=== PATIENT | female | born 1940 | race American Indian/Alaskan Native ===

== ENCOUNTER 2016-12-23 10:33 | Day surgery (SDC) | payer MEDICARE, BC ==
[~2016-12-23 10:33] MED LIST: Acetaminophen TAB* 325 MG PO PRN; Buffered Lidocaine 0.9% SYRIN* 5 ML/SYR SYRINGE INTRADERM ONE
[2016-12-23] MEDS ORDERED: Midazolam* 1 MG/ML 2 ML VIAL (2 MG) ONE (11:23)
[2016-12-23 12:59] VITALS: BP 105/88
[2016-12-23] MEDS ORDERED: Cyclopentolate 1% OPTH.SOL* 2 ML BTL ONE (14:01)
[2016-12-23] MEDS ORDERED: Neomycin/Polymy/Dex OPTH.SUSP* MAXITROL 0.1% 5 ML ONE (14:01)
[2016-12-23] MEDS ORDERED: Proparacaine 0.5% OPHTH.SOL* 15 ML BTL ONE (14:01)
[2016-12-23] MEDS ORDERED: Lidocaine 1% MPF* 2 ML VIAL ONE (14:01)
[2016-12-23] MEDS ORDERED: Buffered Lidocaine 0.9% SYRIN* 5 ML/SYR SYRINGE ONE (14:01)
[2016-12-23] MEDS ORDERED: acetaZOLAMIDE TAB* 250 MG ONE (14:01)
[2016-12-23] MEDS ORDERED: Povidone Iodine 5% OPTH* 30 ML BTL ONE (14:01)
[2016-12-23] MEDS ORDERED: Phenylephrine 2.5% OPTH.SOL* 2 ML BTL ONE (14:01)
[2016-12-23] MEDS ORDERED: Ketorolac 0.5% OPHTH (NF) 0.5 % 5 ML BTL ONE (14:01)
--- NOTE | 2016-12-23 23:51 | OP ---
DATE OF OPERATION: 12/23/16 [facility] DATE OF : 36 SURGEON: Dionicio Villeda MD PREOPERATIVE DIAGNOSIS: Cataract, left eye. POSTOPERATIVE DIAGNOSIS: Cataract, left eye. OPERATIVE PROCEDURE: Phacoemulsification, left eye with IOL. DESCRIPTION OF PROCEDURE: The patient was brought to the operating room after being given 1/2% Alcaine with epinephrine drops in the preoperative area. The eye was prepped and draped in the usual sterile fashion. Sterile drape and eyelid speculum were placed. Again, topical 1/2% Alcaine with epinephrine was given. A paracentesis incision was made at the 3 o'clock position with the No.75 blade. Clear cornea incision 2.2 x 2.2-mm was created at the 6 o'clock position starting at the anterior limbus using the 2.2-mm keratome. The anterior chamber was irrigated with 0.4 mL of 1% non-preservative intracameral lidocaine and filled with DisCoVisc. A capsulorrhexis was completed using the cystotome and the Utrata forceps. Hydrodissection was performed with balanced salt solution. The lens nucleus was removed with the Phacoemulsification handpiece without incident. Cortex was removed with the irrigation-aspiration handpiece. The capsular bag was re-inflated using DisCoVisc and an [id number] 25.5 implant was inserted with the shooter. The irrigation-aspiration handpiece was used to remove all residual DisCoVisc. The eye was refilled with balanced salt solution and the wound checked and found to be watertight. Topical Maxitrol drops were given. [id number]/[facility] #: [id number] MTDD
== END 2016-12-23 12:30 | disposition home or self-care (01) ==
LOC: OREAST 10:33
PROVIDERS: ATTEND Specialist
DX: H25.12 Age-related nuclear cataract, left eye (principal); I10 Essential (primary) hypertension; I48.91 Unspecified atrial fibrillation; E03.9 Hypothyroidism, unspecified
CPT/HCPCS: A9270-GY; J2250; V2632

== ENCOUNTER 2017-11-18 06:27 | Day surgery (SDC) | payer MEDICARE, BC ==
--- NOTE | 2017-11-14 12:50 | HP ---
HISTORY AND PHYSICAL: DATE OF SERVICE: 11/18/17 ATTENDING PROVIDER: Luis Pedroza MD * (DICTATED BY JAMIL GIORDANO) HISTORY OF PRESENT ILLNESS: Ms. Urbano is a 77-year-old female who presents today with a mass on her right index finger that has been enlarging and is quite red. She also had some pain. The patient has been treated by Dr. Hebert 1 month ago with allopurinol for a diagnosis of gout. Last Friday, she was seen by a home care nurse who is also present today and states that the area was slightly red, but not swollen. The patient states that 2 days ago, it swelled up significantly and became painful. She is seen by Dr. Wolf, her brand mgr for atrial fibrillation, which she is on Pradaxa for. She denies any history of blood clots. She denies any numbness or tingling. No other joint pain. She would like to get this removed if possible. PAST MEDICAL HISTORY: 1. Hypertension. 2. AFib. 3. High cholesterol. 4. Gout. 5. Arthritis 6. Thyroid problems. 7. Anxiety. PAST SURGICAL HISTORY: None. MEDICATIONS: 1. Hydrocodone/acetaminophen 10/325. 2. Pradaxa 150 mg 1 tab b.i.d. 3. Atorvastatin 10 mg. 4. Allopurinol 100 mg. 5. Metoprolol 100 mg. 6. Buspirone 15 mg. 7. Gabapentin 100 mg. 8. Levothyroxine 75 mcg. 9. Colace 100 mg. 10. Furosemide 20 mg. 11. Vitamin D3 1 tab. ALLERGIES: 1. MORPHINE. 2. HYDROCHLOROTHIAZIDE. FAMILY HISTORY: Diabetes in her son, heart disease in her mother. SOCIAL HISTORY: The patient lives with her spouse, has 3 steps to get into her home. 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 She does not use tobacco or recreational drugs. She does drink alcohol, 3 glasses of wine per week. REVIEW OF SYSTEMS: General: The patient denies fevers, chills or night sweats. No known anesthesia problems. HEENT: The patient denies any headaches , lightheadedness or syncopal episode. Cardiothoracic: The patient denies any chest pain or heart palpitations. Pulmonary: The patient denies any shortness of breath with exertion, chronic cough. GI: The patient admits to constipation. Denies any nausea or vomiting or diarrhea. : The patient denies any nocturia, urinary frequency or urgency. MSK: The patient admits to swelling on her right index finger and also admits to chronic low back pain and knee pain bilaterally. Neuro: The patient denies any numbness or paresthesias. Integument: The patient denies any abrasions, lesions, rashes, lumps, or open sores. PHYSICAL EXAMINATION GENERAL: The patient is alert and oriented x3 with appropriate mood and affect , appropriate dress and hygiene, in no acute distress. HEENT: Normocephalic atraumatic. Hearing and vision are grossly intact. PULMONARY: Lungs are clear to auscultation bilaterally with no wheezes, rales or rhonchi. CARDIO: Irregular rate and irregular rhythm consistent with AFib. Normal S1 and S2. No murmurs, rubs or gallops. MSK: Inspection of the right upper extremity reveals a large mass of the right index finger on the dorsal aspect. She is able to move her finger through a full range of motion. The mass is quite erythematous with 2 areas of white ____ __. The mass is slightly hard and tender to palpation. Cap refill is less than 2 seconds. The patient has a 2+ radial pulse and she has sensation intact to light touch. IMAGING: X-ray was obtained and reviewed. There is a soft tissue mass seen on x- ray through a shadow present. The DIP joint of the right index finger shows significant arthritis spurring and joint space narrowing. IMPRESSION: Right index finger acute gouty tophus. PLAN: Plan to the OR for removal of a gouty tophus from the right index finger by Dr. Luis Pedroza on 11/18/17. The patient will follow up in 10 to 14 days postoperatively for suture removal and a followup. Dr. Pedroza reviewed the risks and benefits of surgery today. We also contacted Dr. Wolf's office and we spoke with Dr. Wolf about discontinuing the Pradaxa. He advised that Pradaxa will be discontinued 2 days prior to surgery with no bridging needed and then we can restart the Pradaxa immediately after. We conveyed the message to the patient's caregiver and she understood. JAMIL GIORDANO [id number]/[facility] #: [id number] [facility]ITAL[facility]
[~2017-11-18 06:27] MED LIST changes: -Acetaminophen TAB* 325 MG PO PRN
[2017-11-18] MEDS ORDERED: ceFAZolin 2 GM PREMIX (*) 2 GM/50 ML BAG IVPB ONE (06:54)
[2017-11-18] MEDS ORDERED: Bupivacaine 0.25% SDV PF* 10 ML VIAL INJ ONE (07:09)
[2017-11-18] MEDS ORDERED: Metoprolol Tartrate TAB* 25 MG ONE (07:21)
[2017-11-18] MEDS ORDERED: fentaNYL* 50 MCG/ML 2 ML VIAL (100 MCG VIAL) ONE (07:36)
[2017-11-18] MEDS ORDERED: Midazolam* 1 MG/ML 2 ML VIAL (2 MG) ONE (07:36)
[2017-11-18] MEDS ORDERED: Bacitracin OINTMENT* 0.5% 0.5 oz TUBE ONE (08:17)
[2017-11-18] MEDS ORDERED: Naloxone* 0.4 MG/ML 1 ML VIAL IV PRN (08:39)
[2017-11-18 09:32] VITALS: BP 140/73
--- NOTE | 2017-11-18 13:47 | OP ---
CC: Dr. Hebert * DATE OF OPERATION: 11/18/17 - [facility] DATE OF : 36 SURGICAL CARE: Right index finger. SURGEON: Luis Pedroza MD BREAKFAST SUPERVISOR: Daisy Arreguin. ANESTHESIOLOGIST: Peter ISSA DO ANESTHESIA: Local anesthetic, Dr. Pedroza, was a digital block right index finger with 0.25% Marcaine without epinephrine. 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 OPERATIVE PROCEDURE: Removal of gouty tophi, right index finger DIP joint, dorsal radial and ulnar sides and debridement of the DIP joint. INDICATIONS: Painful large mass. The patient's Pradaxa was stopped 2 evenings ago and the Pradaxa will restart later today. The indication is same as described above. COMPLICATIONS: There were no complications. DRAINS: There were no drains. CONDITION: Stable to the recovery area. DESCRIPTION OF PROCEDURE: The patient was brought to the operating room in the hospital stretcher where she was made comfortable. The right upper extremity was prepped with ChloraPrep and then the right forearm, wrist, and hand were draped in the usual manner for hand surgery. We did our universal protocol time-out confirming Leslee Urbano and the plan for right index finger removal of mass and care of DIP joint. We all agreed and we proceeded. The finger was exsanguinated with a circular tourniquet which was left on the base of the finger and the skin incision was longitudinal along the dorsal radial aspect of the DIP joint starting at the base of the nail and going into the middle segment of the finger. The patient's skin was intact 5 days ago and then since then the dorsal tophus has eroded through the skin some and this was on the ulnar side of this incision. This area was about 8 mm in diameter. The skin and subcu was divided and then the flaps were elevated on the dorsal side and on the radial side. The extensor tendon was identified and the tophus was peeled off the dorsal radial aspect of the extensor tendon where it also went into the tendon some. This one was 2-3 cm x 1.5 cm x 1.5 cm in thickness and all of it was sent for specimen. Once this was off, then the radial aspect of the DIP joint was exposed down to the bone and the rongeur was utilized to remove the extra bone on the radial aspect of the middle phalanx and the base of the distal phalanx. The skin incision was teed across the dorsum of the DIP joint and on the ulnar side, a smaller tophus was removed, it was just 1 cm x 0.5 cm x 0.5 cm and the ulnar side of the DIP joint was also debrided with rongeur and then I took care to try to remove all the rest of the toothpaste-like tissue from the joint, the extensor tendon region, and the dorsal skin. The extensor tendon was kept in continuity. After irrigation, the dorsal skin flap was debrided a little bit. The skin was closed carefully with interrupted 4-0 Prolene sutures and a dressing was Xeroform with triple antibiotic ointment and 1-inch Mariusz in a gentle compressive fashion on the index finger. The tourniquet was removed and care was taken to see that the skin and subcu was not adherent to the deep structures where the tourniquet had been and then the dressing was anchored over the dorsal hand to the wrist utilizing the Mariusz and 1-inch Coban. The patient was returned to the recovery area in stable and satisfactory condition having tolerated the procedure very well. Her Pradaxa, we will restart with her evening dose tonight and she knows to keep the dressing intact and dry and we will be checking her in the office in 8 days and as necessary. Ancef was utilized as a perioperative protection prophylaxis. [id number]/[facility] #: [id number] MILEY
== END 2017-11-18 09:34 | disposition home or self-care (01) ==
LOC: OR 06:27
PROVIDERS: ATTEND Orthopaedic Surgery
DX: M1A.9XX1 Chronic gout, unspecified, with tophus (tophi) (principal); I10 Essential (primary) hypertension; I48.91 Unspecified atrial fibrillation; E78.00 Pure hypercholesterolemia, unspecified; M19.90 Unspecified osteoarthritis, unspecified site; F41.9 Anxiety disorder, unspecified
CPT/HCPCS: 88304; A9270-GY; J0690; J2250; J3010; J3490

== ENCOUNTER 2018-04-07 12:49 | Inpatient (IN) | payer MEDICARE, BC, OTHER ==
--- NOTE | 2018-04-07 13:21 | ED ---
Altered Mental Status - HPI Summary HPI Summary: This pt is a 77 y/o female presenting to [facility] via EMS for altered mental status. Per EMS pt's home health nurse called EMS because pt was altered compared to baseline. EMS states the pt reported to the home nurse that she was seeing the devil. Upon EMS arrival, pt ambulated to the ambulance. Per EMS upon arriving to the ED, pt began c/o right sided back and hip pain. Pt points to right groin pain that radiates to her right side of back, including her right hip. Pt denies any fall. Denies nausea, vomiting, diarrhea, dysuria. She states she has been eating and drinking well. She is unable to state where she lives and unable to tell the day and month. Pt lives with her at home, per EMS. Per Grazyna, her home health nurse, pt had hx of anxiety and was started on Ativan a couple of weeks ago. Pt has hx of chronic pain and has medications for this. This morning pt had back pain, which is unusual for her. Confusion is also unusual for her, per Grazyna. - History Of Current Complaint Chief Complaint: EDBackInjuryPain Stated Complaint: BACK PAIN Hx Obtained From: Patient, Family/Customer Sales Service Manager - home health nurse, Grazyna, EMS Onset/Duration: Still Present Timing: Constant, Lasting Hours Severity Currently: Moderate Character: Confusion Aggravating Factor(s): Unknown Alleviating Factor(s): Unknown Associated Signs And Symptoms: Negative: Nausea, Vomiting, Fever, Recent Trauma - Allergies/Home Medications Allergies/Adverse Reactions: Allergies Allergy/AdvReac Type Severity Reaction Status Date / Time hydrochlorothiazide Allergy hyponatremi Verified 03/05/18 13:16 a morphine Allergy Hallucinati Verified 03/05/18 13:16 ons Home Medications: Home Medications Allopurinol TAB* [Zyloprim 100 MG TAB*] 100 mg PO QAM 04/07/18 [History Confirmed 04/07/18] Chlorhexidine MOUTHWASH 0.12%* [Peridex Mouth Wash 0.12%*] 15 ml SWISH SPIT DAILY 04/07/18 [History Confirmed 04/07/18] Docusate CAP* [Colace Cap*] 100 mg PO BID 04/07/18 [History Confirmed 04/07/18] Gabapentin CAP(*) [Neurontin 100 mg CAP(*)] 100 mg PO QAM 04/07/18 [History Confirmed 04/07/18] Gabapentin CAP(*) [Neurontin 100 mg CAP(*)] 200 mg PO BEDTIME 04/07/18 [History Confirmed 04/07/18] Hydrocodone/Acetamin 10325(NF [Thayer 10325 (NF)] 0.5 tab PO Q6H MDD 4 tabs 03/15 [History Confirmed 04/07/18] LORazepam TAB(*) [Ativan 0.5 MG TAB (*)] 0.25 mg PO BID 04/07/18 [History Confirmed 04/07/18] Magnesium Hydroxide LIQ* [Milk of Magnesia LIQ*] 30 ml PO BEDTIME PRN 04/07/18 [ History Confirmed 04/07/18] Metoprolol Tartrate TAB* [Lopressor TAB*] 50 mg PO BID 04/07/18 [History Confirmed 04/07/18] busPIRone TAB* [Buspar TAB *] 15 mg PO BID 04/07/18 [History Confirmed 04/07/18] PMH/Surg Hx/FS Hx/Imm Hx Endocrine/Hematology History: Reports: Hx Thyroid Disease Denies: Hx Anticoagulant Therapy, Hx Blood Disorders, Hx Blood Transfusions, Hx Bone Marrow Disease, Hx Diabetes, Hx Systemic Lupus Erythematosus, Hx Sickle Cell Disease, Hx Anemia, Hx Unexplained Bleeding, Other Endocrine/Hematological Disorders Cardiovascular History: Reports: Hx Hypertension - controlled with meds, Other Cardiovascular Problems/Disorders - ATRIAL FIB Denies: Hx Aneurysm, Hx Angina, Hx Angioplasty, Hx Auto Implanted Cardiovert Defib, Hx Cardiac Arrest, Hx Cardiomegaly, Hx Congenital Heart Disease, Hx Congestive Heart Failure, Hx Coronary Artery Disease, Hx Deep Vein Thrombosis, Hx Hypercholesterolemia, Hx Hypotension, Hx Pacemaker/ICD, Hx Peripheral Vascular Disease, Hx Rheumatic Fever, Hx Syncope, Hx Valvular Heart Disease Respiratory History: Denies: Hx Asthma, Hx Bronchopulmonary Dysplasia, Hx Chronic Bronchitis, Hx Chronic Obstructive Pulmonary Disease (COPD), Hx Cystic Fibrosis, Hx Lung Cancer , Hx Pleural Effusion, Hx Pneumonia, Hx Pulmonary Edema, Hx Pulmonary Embolism, Hx Seasonal Allergies, Hx Sleep Apnea, Other Respiratory Problems/Disorders GI History: Reports: Hx Gastroesophageal Reflux Disease - OCCASIONALLY, Other GI Disorders - Chronic constipation Denies: Hx Cirrhosis, Hx Crohn's Disease, Hx Diverticulosis, Hx Gall Bladder Disease, Hx Gastrointestinal Bleed, Hx Hiatal Hernia, Hx Irritable Bowel, Hx Jaundice, Hx Obstructive Bowel, Hx Ileostomy, Hx Pyloric Stenosis, Hx Ulcer History: Denies: Hx Acute Renal Failure, Hx Benign Prostatic Hyperplasia, Hx Chronic Renal Failure, Hx Dialysis, Hx Kidney Infection, Hx Kidney Stones, Other Problems/Disorders Musculoskeletal History: Reports: Hx Arthritis - HANDS, KNEES & FEET, OSTEOARTHRITIS Denies: Hx Bursitis, Hx Congenital Bone Abnormalities, Hx Fibromyalgia, Hx Gout, Hx Orthopedic Injury, Hx Osteoporosis, Hx Scoliosis, Hx Tendonitis, Other Musculoskeletal History Sensory History: Reports: Hx Cataracts - left, Hx Contacts or Glasses - reading Denies: Hx Eye Injury, Hx Eye Prosthesis, Hx Glaucoma, Hx Macular Degeneration, Hx Vision Problem, Hx Deafness, Hx Hearing Aid, Hx Hearing Problem , Other Sensory Impairments Opthamlomology History: Reports: Hx Cataracts - left, Hx Contacts or Glasses - reading Denies: Hx Eye Injury, Hx Eye Prosthesis, Hx Glaucoma, Hx Macular Degeneration, Hx Vision Problem, Other Sensory Impairments Neurological History: Reports: Hx Dementia - questionable, Hx Nerve Disease - BILATERAL NEUROPATHY Denies: Hx Developmental Delay, Hx Headaches, Hx Migraine, Hx Seizures, Hx Spinal Cord Injury, Hx Transient Ischemic Attacks (TIA), Other Neuro Impairments /Disorders Psychiatric History: Reports: Hx Anxiety Denies: Hx Attention Deficit Hyperactivity Disorder, Hx Autism, Hx Eating Disorder, Hx Oppositional Dawson Disorder, Hx Depression, Hx Panic Disorder, Hx Post Traumatic Stress Disorder, Hx Inpatient Treatment, Hx Community Mental Health Tx, Hx Schizophrenia, Hx Bipolar Disorder, Hx Suicide Attempt, Other Psychiatric Issues/Disorders - Cancer History Hx Hematologic Symptoms: No Hx Chemotherapy: No Hx Radiation Therapy: No - Surgical History Surgery Procedure, Year, and Place: pt states "ovary" removed, and lumpectomy of breast >40 years ago. Pt unable to recall the years for either surgery, or which breast for the lumpectomy. RIGHT EYE-CATARACT Hx Anesthesia Reactions: No Infectious Disease History: Unable to Obtain/Confirm Infectious Disease History: Denies: Hx Clostridium Difficile, Hx Hepatitis, Hx Human Immunodeficiency Virus (HIV), Hx Shingles, Hx Tuberculosis, Traveled Outside the [place] in Last 30 Days - Family History Known Family History: Positive: Unknown - due to level 5 caveat - pt is as poor historian - Social History Alcohol Use: Daily Alcohol Amount: 1 glass of wine a day Hx Substance Use: No Substance Use Type: Reports: None Substance Use Comment - Amount & Last Used: oxycontin Hx Tobacco Use: No Smoking Status (MU): Never Smoked Tobacco Have You Smoked in the Last Year: No Review of Systems Negative: Fever, Chills Negative: Erythema Negative: Sore Throat Negative: Chest Pain Negative: Shortness Of Breath, Cough Negative: Abdominal Pain, Vomiting, Diarrhea, Nausea Negative: dysuria, hematuria Musculoskeletal: Other - POSITIVE: right hip pain, right sided back pain Negative: Myalgia, Edema Negative: Rash Neurological: Other - NEGATIVE: dizziness. POSITIVE: confusion All Other Systems Reviewed And Are Negative: Yes Physical Exam - Summary Physical Exam Summary: Constitutional: Well-developed, Well-nourished, Alert. Pt is moaning. Skin: Warm, Dry. Ecchymosis on right hip. HENT: Normocephalic; Atraumatic Eyes: Conjunctiva normal Neck: Musculoskeletal ROM normal neck. (-) JVD, (-) Stridor, (-) Tracheal deviation Cardio: Rhythm regular, rate normal, Heart sounds normal; Intact distal pulses; The pedal pulses are 2+ and symmetric. Radial pulses are 2+ and symmetric. (-) Murmur Pulmonary/Chest wall: Effort normal. (-) Respiratory distress, (-) Wheezes, (-) Rales Abd: Soft, (-) epigastric tenderness, (-) Distension, (-) Guarding, (-) Rebound Musculoskeletal: (-) Edema. Localizing to right groin and right posterior hip. Some active ROM but it is limited. No pain with passive ROM. Lymph: (-) Cervical adenopathy Neuro: Alert, Oriented x3 Psych: Mood and affect Normal Triage Information Reviewed: Yes Vital Signs On Initial Exam: Initial Vitals Temp Pulse Resp BP Pulse Ox 97.9 F 74 16 181/78 99 04/07/18 13:01 04/07/18 13:01 04/07/18 13:01 04/07/18 13:01 04/07/18 13:01 Vital Signs Reviewed: Yes - Leidy Coma Scale Best Eye Response: 4 - Spontaneous Best Motor Response: 6 - Obeys Commands Best Verbal Response: 4 - Confused Coma Scale Total: 14 Diagnostics - Vital Signs Vital Signs Temp Pulse Resp BP Pulse Ox 04/07/18 13:01 97.9 F 74 16 181/78 99 - Laboratory Result Diagrams: 04/07/18 13:44 04/07/18 13:44 Lab Statement: Any lab studies that have been ordered have been reviewed, and results considered in the medical decision making process. - Radiology Chest XR Radiology Interpretation Completed By: Radiologist Summary of Radiographic Findings: IMPRESSION: Low lung volumes. Small right basilar infiltrate. Dr. Tavares has reviewed this report. - CT Brain CT CT Interpretation Completed By: Radiologist Summary of CT Findings: IMPRESSION: No acute intracranial pathology. Diffuse involutional change with chronic small vessel ischemic changes. Dr. Tavares has reviewed this report. Cervical spine CT CT Interpretation Completed By: Radiologist Summary of CT Findings: IMPRESSION: 1. Osteopenia. 2. Degenerative disc disease and osteoarthritis. 3. Erosive changes with pannus formation at C1-C2 suggestive of an inflammatory arthropathy, including rheumatoid arthritis. 4. Atherosclerosis. 5. No acute osseous injury to the cervical spine. Dr. Tavares has reviewed this report. Abdomen/Pelvis CT CT Interpretation Completed By: Radiologist Summary of CT Findings: IMPRESSION: 1. Extensive diverticulosis. 2. Atherosclerosis. 3. Stable low-attenuation hepatic lesion previously characterized as a hemangioma. Dr. Tavares has reviewed this report. Altered Mental Statu Course/Dx - Course Assessment/Plan: Pt is a 77 y/o female who presents to the ED via EMS for altered mental status. Per EMS pt's home health nurse called EMS because pt was altered compared to baseline. EMS states the pt reported to the home nurse that she was seeing the devil. Upon EMS arrival, pt ambulated to the ambulance. Per EMS upon arriving to the ED, pt began c/o right sided back and hip pain. Pt points to right groin pain that radiates to her right side of back, including her right hip. Pt denies any fall. Denies nausea, vomiting, diarrhea, dysuria. She states she has been eating and drinking well. She is unable to state where she lives and unable to tell the day and month. Labs show APTT 57.6, anion gap is 21, glucose is 61, lactic acid is 5.9, serum alcohol is 45. Second lactic acid is 4.1. Brain CT shows no acute intracranial pathology. Diffuse involutional change with chronic small vessel ischemic changes. Cervical spine CT shows 1. Osteopenia. 2. Degenerative disc disease and osteoarthritis. 3. Erosive changes with pannus formation at C1-C2 suggestive of an inflammatory arthropathy, including rheumatoid arthritis. 4. Atherosclerosis. 5. No acute osseous injury to the cervical spine. A/P CT shows 1. Extensive diverticulosis. 2. Atherosclerosis. 3. Stable low-attenuation hepatic lesion previously characterized as a hemangioma. Chest XR reveals low lung volumes. Small right basilar infiltrate. Pt was given Tylenol, Dilaudid x2, Ativan, Zofran, Rocephin, Azithromycin, IV fluids. Sepsis fluids were not able to be administered within 3 hours due to being unable to obtain IV access and pt's severe agitation. I discussed the case with Dr. Espinoza, hospitalist, who accepted for admission. Hypoglycemia could be related to alcohol consumption - Diagnoses Provider Diagnoses: Pneumonia, Delirium, Sepsis, Lactic acidosis, Hypoglycemia, Heavy alcohol consumption - Provider Notifications Discussed Care Of Patient With: Grazyna ([facility]) Time Discussed With Above Provider: 13:26 Instructed by Provider To: Other - I discussed the case with Grazyna, pt's home health nurse from [facility], who reports the pt's back pain is unsual for her and confusion is also unusual. She states the pt needs placement. [17:25] I discussed pt care with Dr. Espinoza, hospitalist, who accepted the pt for admission. Discharge - Sign-Out/Discharge Documenting (check all that apply): Patient Departure - Admit to [facility] - Discharge Plan Condition: Stable Disposition: ADMITTED TO [facility] Referrals: Aurelia Koroma MD [Primary Care Provider] - - Billing Disposition and Condition Condition: STABLE Disposition: Admitted to [facility] - Attestation Statements Document Initiated by Elsieibe: Yes Documenting Scribe: Kamini England Provider For Whom Elsieibe is Documenting (Include Credential): Lester Tavares MD Scribe Attestation: Kamini Navarro, scribed for Lester Tavares MD on 04/07/18 at 1841. Scribe Documentation Reviewed: Yes Provider Attestation: The documentation as recorded by the Kamini loew accurately reflects the service I personally performed and the decisions made by me, Lester Tavares MD Status of Scribe Document: Viewed
[2018-04-07] MEDS ORDERED: Acetaminophen TAB* 325 MG PO ONE (13:23)
[2018-04-07 13:54] LABS: ABS Basophils 0 10^3/ul (0-0.2); ABS Eosinophils 0.1 10^3/ul (0-0.6); ABS Lymphocytes 2.7 10^3/ul (1.0-4.8); ABS Monocytes 0.5 10^3/ul (0-0.8); ABS Neutrophils 4.5 10^3/ul (1.5-7.7); ABS Nucleated RBC 0 10^3/ul; Eosinophil % 0.6 %; Hematocrit 42 % (35-47); Hemoglobin 13.7 g/dl (12.0-16.0); Lymphocyte % 34.6 %; Mean Corpuscular HGB Conc 33 g/dl (31-36); Mean Corpuscular Hemoglobin 30 pg (27-31); Mean Corpuscular Volume 93 fL (80-97); Mean Platelet Volume 8.1 fL (7.4-10.4); Nucleated Red Blood Cells % 0.1; Platelet Count 203 10^3/ul (150-450); Red Blood Count 4.52 10^6/ul (4.00-5.40); Red Cell Distribution Width 15 % (10.5-15); White Blood Count 7.8 10^3/ul (3.5-10.8)
[2018-04-07 14:03] LABS: INR 1.12 (0.77-1.02)
[2018-04-07 14:20] LABS: EGFR Non-African American 79.4 (>60)
[2018-04-07] MEDS ORDERED: Dextrose 50% Syringe 50 ML* 25 GM/50 ML SYRINGE IV PUSH ONE (14:38)
[2018-04-07] MEDS ORDERED: Ondansetron INJ* 2 MG/ML VIAL IV ONE (14:38)
[2018-04-07] MEDS ORDERED: HYDROmorphone INJ* 2 MG/ML CARPUJECT SYRINGE IV SLOW PU ONE ×2 (14:39→15:27)
[2018-04-07] MEDS ORDERED: Iodixanol* (CONTRAST) 320 MG/ML 100 ML SDV IV ONE (15:08)
[2018-04-07] MEDS ORDERED: Iohexol 300* (CONTRAST) 10 ML SDV IV ONE (15:09)
[2018-04-07] MEDS ORDERED: HYDROmorphone INJ* 0.5 MG/0.5 ML SYRINGE ONE (15:10)
[2018-04-07] MEDS ORDERED: LORazepam INJ* 2 MG/ML 1 ML VIAL IV PUSH ONE (15:19)
[2018-04-07] MEDS ORDERED: Azithromycin IV(*) 500 MG in NS 0.9% 250 ML* 250 ML IVPB ONE (16:43)
[2018-04-07] MEDS ORDERED: cefTRIAXone(*) 1 GM in NS 0.9% 50 ML* 50 ML IVPB ONE (16:43)
[2018-04-07] MEDS: NS 0.9% 1000 ML* 2,000 ML IV ONE ×2 (17:37→19:24)
[2018-04-07] MEDS ORDERED: Azithromycin IV* 500 MG ADVAN VIAL/BAG IVPB ONE (19:21)
[2018-04-07] MEDS ORDERED: Ondansetron INJ* 2 MG/ML VIAL IV PRN (19:24)
[2018-04-07] MEDS ORDERED: Albuterol/Ipratropium NEB.SOL* Albuterol 2.5 MG/Ipratropium 0.5 MG 3 ML INH PRN (19:24)
[2018-04-07] MEDS ORDERED: NS 0.9% 1000 ML* 1,000 ML IV SCH (19:30)
[2018-04-07] MEDS ORDERED: Polyethylene Glycol 3350* 17 GM PACKET PO PRN (19:34)
[2018-04-07] MEDS ORDERED: LORazepam INJ* 2 MG/ML 1 ML VIAL IV PUSH PRN (19:34)
[2018-04-07] MEDS ORDERED: Magnesium Hydroxide LIQ* 30 ML UDC PO PRN (19:34)
[2018-04-07] MEDS ORDERED: HYDROmorphone INJ1* 1 MG/ML SYRINGE IV SLOW PU PRN (19:43)
[2018-04-07 19:48] LABS: Urine Appearance Cloudy; Urine Blood 1+ (Negative); Urine Color Yellow; Urine Ketones 1+ (Negative); Urine Protein Negative (Negative); Urine Red Blood Cell 2+(6-10/hpf) (Absent); Urine Specific Gravity > 1.060 (1.010-1.030); Urine Urobilinogen Negative (Negative); Urine White Blood Cell 3+(>20/hpf) (Absent)
[2018-04-07] MEDS: Docusate CAP* 100 MG PO SCH (21:50)
[2018-04-07] MEDS: Atorvastatin* 10 MG TAB PO SCH (21:50)
[2018-04-07] MEDS: Gabapentin CAP(*) 100 MG PO SCH (21:50)
[2018-04-07] MEDS: KCL 20 MEQ/100 ML IVPREMIX* 20 MEQ/100 ML BAG IV SCH (21:50)
[2018-04-07] MEDS: CMCS: Dabigatran CAP(NF) 150 MG CAP PO SCH (21:51)
[2018-04-07] MEDS: Metoprolol Tartrate TAB* 50 mg PO SCH (21:52)
--- NOTE | 2018-04-07 22:50 | HP ---
CC: Dr. Koroma * HISTORY AND PHYSICAL: DATE OF ADMISSION: 04/07/18 PROVIDER: Estella Wood NP PRIMARY CARE PHYSICIAN: Dr. Koroma ATTENDING PHYSICIAN: Dr. Carbajal * (dictated by Estella Wood NP). CHIEF COMPLAINT: Altered mental status, confusion, and agitation. HISTORY OF PRESENT ILLNESS: Mrs. Urbano is a 77-year-old female with past medical history significant for AFib, chronic low back and knee pain, hypertension, GERD, arthritis, anxiety, and recurrent interstitial cystitis, who presented to the ED after the patient's home health nurse found her more confused than usual. The patient did not recognize her home health nurse, who has been with her for 2 years, and was telling her to get out of the house and that she was seeing the devil. The home health nurse reports that as far as she knows the patient was in her usual state of health prior to this and she had not heard about any falls or seen her cough or have any respiratory symptoms , or heard her complain of urinary symptoms. When the patient arrived in the ED , she was agitated and was complaining of back pain and right-sided hip pain. The patient's home health nurse reports that she does have baseline anxiety, but is not usually confused; however, in the ED, she was unable to state where she lived or tell the day of the month. The patient's labs were notable for a lactic acid of 5.9. She did not have leukocytosis and was afebrile. Her blood pressure was initially elevated to systolic in the 180s, however, she became more normotensive as she began to calm down with administration of Ativan and Dilaudid. Also of note, the patient did have a serum alcohol of 45. In documentation from previous admissions, pt states drinking 3 glass of wine per week. The patient denied nausea, vomiting, diarrhea, or dysuria, chest pain, shortness of breath, and cough; however, at the time of my exam, she was unable to answer more than yes or no questions due to confusion and anxiety. Her home health nurseshared that they have been trying to get more help for the patient and her as the patient is her 's primary rn home care and he has severe dementia. The patient's son and daughter both live out of the area. Her son, Kevon lives in [place] and her daughter lives in [facility]. A social work consult has been placed as both she and her will likely need placement as it seems that they are unsafe at home. The patient's home health nurse also questions whether the patient has been taking her medications correctly. The hospitalist team was asked to admit this patient for further workup of her altered mental status. PAST MEDICAL HISTORY: 1. AFib, on Pradaxa. 2. Hypertension. 3. GERD. 4. Hypothyroid. 5. Arthritis. 6. Anxiety. 7. Chronic low back and knee pain. 8. Recurrent interstitial cystitis. PAST SURGICAL HISTORY: The patient states "ovary removed" and lumpectomy of breast over 40 years ago as well as right cataract surgery. MEDICATIONS: Home medications: 1. MiraLAX 17 g p.o. q.a.m. p.r.n. 2. Milk of magnesia 30 mL p.o. at bedtime p.r.n. 3. Peridex mouthwash 15 mL swish and spit daily. 4. Ativan which she takes 0.25 mg p.o. b.i.d. 5. Gabapentin 100 mg in the morning and 200 mg at bedtime. 6. Vitamin D2 50,000 units p.o. monthly. 7. Allopurinol 100 mg p.o. q.a.m. 8. La Fontaine 10/325 0.5 tabs p.o. q.6 hours with the max daily dose of 4 tabs. 9. Pradaxa 150 mg p.o. b.i.d. 10. Metoprolol tartrate 50 mg p.o. b.i.d. 11. Lasix 20 mg p.o. q.a.m. 12. Atorvastatin 10 mg p.o. at bedtime. 13. Synthroid 75 mcg p.o. q.a.m. 14. Colace 100 mg p.o. b.i.d. 15. BuSpar 15 mg p.o. b.i.d. ALLERGIES: The patient has a documented allergy to HYDROCHLOROTHIAZIDE, which results in hyponatremia and MORPHINE which result in hallucinations. FAMILY HISTORY: Unknown as the patient is a poor historian and is unable to relay that information at this time. SOCIAL HISTORY: Per previous documentation, the patient denied smoking and has in the past endorsed drinking 3 glasses of wine per week. I was unable to discuss code status at this time; however, in the past she had been full code. The patient's previous healthcare proxy has been documented as her , Niles Urbano; however, he has severe dementia. In the past, she has also listed her son, Kevon as a secondary healthcare proxy. REVIEW OF SYSTEMS: I performed a 14-point review of systems. All the pertinent positives and negatives are mentioned in the history of present illness. The remaining review of systems are negative. PHYSICAL EXAMINATION GENERAL APPEARANCE: The patient is visibly agitated and is trying to get out of bed. She did not appear to be in pain. VITALS: Temperature 97.9, heart rate 86, respiratory rate 24, O2 sat 97% on room air, blood pressure 158/85. HEENT: Normocephalic, atraumatic. Pupils are equal, round, and reactive to light and accommodation. Extraocular movements are intact. NECK: Supple. No lymphadenopathy noted. No JVD appreciated. RESPIRATORY: No accessory muscle use. Lungs are clear to auscultation. Normal work of breathing. CARDIAC: Regular rate and rhythm. S1 and S2 present. No murmurs, rubs, or gallops. ABDOMEN: Soft, nontender, and nondistended. No rebound or guarding. There are bowel sounds x4. EXTREMITIES: No extremity edema. DP and PT pulses are 2+ and symmetric. MUSCULOSKELETAL: No clubbing or cyanosis noted. The patient exhibited 5/5 strength in all 4 extremities. NEUROLOGIC: The patient is alert and oriented to self; however, she is confused about the month, location, and the situation. PSYCH: The patient is mildly agitated and trying to get out of bed. SKIN: There are no rashes; however, some bruising is noted to the right posterior hip. DIAGNOSTIC STUDIES/LAB DATA: Labs: White blood cell count 7.8, RBC 4.52, hemoglobin 13.7, hematocrit 42, platelet count 208. Coagulation, INR 1.12, PTT 57.6. Sodium 140, potassium 3.3, chloride 101, carbon dioxide 18, anion gap 21 , BUN 12, creatinine 0.71, glucose 61, lactic acid 5.9, initially it has been down to 4.1, calcium 10.1. Total bili 0.8, AST 20, ALT 9, alk phos 78. Ammonia 31, troponin 0, total protein 7.9, albumin 4.5, globulin 3.4, albumin/ globulin ratio 1.3. Urine is pending. Serum alcohol 45. Diagnostics: The patient had a brain CT, which showed no acute intracranial pathology, diffuse involutional changes, chronic small vessel ischemic changes. Chest x-ray, which showed the lung volumes and a right basilar infiltrate. Cervical spine CT, which showed osteopenia, degenerative disk disease, and osteoarthritis, erosive changes with pannus formation at C1 to C2 suggestive of an inflammatory arthropathy including rheumatoid arthritis, atherosclerosis. No acute osseous injury to cervical spine. Abdomen and pelvis CT, which showed extensive diverticulosis, atherosclerosis and stable low-attenuation hepatic lesion previously characterized as hemangioma. ASSESSMENT: The patient is a 77-year-old female with past medical history significant for atrial fibrillation, anxiety, recurrent interstitial cystitis, who presented to the emergency department with altered mental status, found to have a lactic acid of 5.9 and will be admitted to the hospitalist service for additional workup. PLAN: 1. Altered mental status, agitation and confusion. This is most likely secondary to an infection given her lactic acid of 5.9 on presentation. Her serum alcohol was also found to be elevated at 45, which could also be contributing. The patient's chest x-ray showed a right basilar infiltrate. This is the most likely source of the infection and she will be treated with ceftriaxone and azithromycin for suspected community acquired pneumonia. The patient was given a sepsis fluid bolus in the emergency department and her lactic acid has trended down from 5.9 initially to 4.1. A repeat lactic acid has been ordered. The patient did meet sepsis criteria due to her elevated lactic acid, respiratory rate of 24, and heart rate of 105. I will continue her on IV fluids at 75 mL/hr for 1 additional bag after which we can reassess. The patient also has a history of recurrent interstitial cystitis, so an urinary tract infection cannot be ruled out as a source of the infection. A urinalysis is pending. The patient did have an abdominal CT, which showed no hydronephrosis. Blood cultures are also pending. 2. Chronic pain. The patient does have a history of chronic low back and knee pain. On exam, the patient's pain did seem to be true low back pain and not flank pain. No CVa tenderness noted. She takes La Fontaine at home, which has been reordered. She also takes gabapentin, which has been reordered as well. In the emergency department, her pain was controlled by 0.5 mg of Dilaudid and that has been ordered p.r.n. if she continues to need it. 3. Atrial fibrillation. I will continue the patient's metoprolol and Pradaxa. 4. Hypertension. I will continue the patient's Lasix. 5. Hypokalemia. The patient did have a potassium of 3.3, which has been repleted. 6. Hypothyroid. I will continue the patient's Synthroid. 7. History of constipation. I have reordered the patient's Colace, which she takes at home as well as p.r.n. milk of magnesia and MiraLAX. 8. History of anxiety. I am holding the BuSpar as the patient's nurse felt this could be contributing to her confusion. I will continue p.r.n. Ativan. 9. Social concerns. A social work consult has been ordered due to concerns that the patient and her are not safe at home and will likely require placement. 10. Fluid, electrolyte, nutrition: The patient can have a heart healthy diet. 11. DVT prophylaxis: The patient is on Pradaxa. 12. Code status: I was unable to have a code status discussion with the patient at this point; however, previous documentation from previous admissions has listed her as full code. This should be revisited with the patient as her confusion clears. 13. Disposition: Inpatient. Anticipate discharge when medically stable; however, she will likely need placement at a higher level of care. TIME SPENT: Time spent for this admission was 60 minutes and 35 minutes were spent with the patient discussing medications, past medical history, and events leading up to the arrival today and performing a physical exam. The case has been reviewed with the attending, Dr. Carbajal, who agrees with the plan of care. ESTELLA WOOD, [place] [id number]/[facility] #: [id number] [place]
[2018-04-08] MEDS ORDERED: KCL 20 MEQ/100 ML IVPREMIX* 20 MEQ/100 ML BAG ONE (02:42)
[2018-04-08] MEDS: KCL 20 MEQ/100 ML IVPREMIX* 20 MEQ/100 ML BAG IV SCH (02:43)
[2018-04-08] MEDS: Levothyroxine TAB* 75 MCG TAB PO SCH (05:10)
[2018-04-08 06:45] LABS: ABS Basophils 0 10^3/ul (0-0.2); ABS Eosinophils 0.1 10^3/ul (0-0.6); ABS Lymphocytes 1.1 10^3/ul (1.0-4.8); ABS Monocytes 0.5 10^3/ul (0-0.8); ABS Neutrophils 3.4 10^3/ul (1.5-7.7); ABS Nucleated RBC 0 10^3/ul; Eosinophil % 1.3 %; Hematocrit 33 % (35-47); Hemoglobin 11.1 g/dl (12.0-16.0); Mean Corpuscular HGB Conc 34 g/dl (31-36); Mean Corpuscular Hemoglobin 31 pg (27-31); Mean Corpuscular Volume 93 fL (80-97); Mean Platelet Volume 8.2 fL (7.4-10.4); Nucleated Red Blood Cells % 0.1; Platelet Count 167 10^3/ul (150-450); Red Blood Count 3.57 10^6/ul (4.00-5.40); Red Cell Distribution Width 15 % (10.5-15); White Blood Count 5.1 10^3/ul (3.5-10.8)
[2018-04-08 07:01] LABS: EGFR Non-African American 92.9 (>60)
[2018-04-08] MEDS: Chlorhexidine MOUTHWASH 0.12%* 15 ML UDC SWISH SPIT SCH (10:05)
[2018-04-08] MEDS: Allopurinol TAB* 100 MG PO SCH (10:05)
[2018-04-08] MEDS: Furosemide TAB* 20 MG PO SCH (10:05)
[2018-04-08] MEDS: Gabapentin CAP(*) 100 MG PO SCH ×2 (10:06→20:59)
[2018-04-08] MEDS: Docusate CAP* 100 MG PO SCH ×2 (10:06→21:12)
[2018-04-08] MEDS: Metoprolol Tartrate TAB* 50 mg PO SCH ×2 (10:06→21:11)
[2018-04-08] MEDS: CMCS: Dabigatran CAP(NF) 150 MG CAP PO SCH ×2 (10:06→21:03)
[2018-04-08] MEDS: Hydrocodone/Acetamin 10/325 1 TAB PO PRN ×3 (10:06→21:37)
[2018-04-08] MEDS ORDERED: Calcium Carbonate CHEW TAB* 500 MG (TUMS) PO PRN (11:21)
[2018-04-08] MEDS: cefTRIAXone(*) 1 GM in NS 0.9% 50 ML* 50 ML IVPB SCH (16:57)
--- NOTE | 2018-04-08 18:10 | PN ---
Subjective Date of Service: 04/08/18 Interval History: Pt seen and examined. Meds and labs reviewed. CC: low back pain and Dyspepsia ROS: Denied WERNER/dizziness, F/C, N/V, CP, SOB, increased cough, sputum production , abd pain, diarrhea, constipation, dysuria, myalgias, arthralgias, throat pain , and new skin lesions. The rest of the 14 point ROS are unremarkable. PHYSICAL EXAM: GEN APPEARANCE: Awake, not in acute distress, not oriented to time HEENT: NC/AT, PERRLA, moist oral mucosa, (-) throat erythema NECK: Soft, supple, (-) cervical LAD, (-)JVD HEART: S1S2 WNL, RRR, No MRG CHEST: CTA, BL, GAE, No W/R/R ABD: Soft, ND/NT, NABS 4x Q EXT: No C/C/E SKIN: Warm to touch PSYCH: No active psychosis, hallucinations, depression, SI/HI Objective Active Medications: Acetaminophen (Tylenol Tab*) 1,000 mg PO BID [facility] Hydrocodone Bitart/Acetaminophen ([place] 10/325 (Nf)) 0.5 tab PO Q6H PRN PRN Reason: PAIN - MODERATE TO SEVERE Last Admin: 04/08/18 16:14 Dose: 0.5 tab Albuterol/Ipratropium (Duoneb (Albuterol 2.5 Mg/Ipratropium 0.5 Mg)) 1 neb INH [id number] AWAKE PRN PRN Reason: sob/wheexing Allopurinol (Zyloprim Tab*) 100 mg PO QAM [facility] Last Admin: 04/08/18 10:05 Dose: 100 mg Atorvastatin Calcium (Lipitor*) 10 mg PO BEDTIME [facility] Last Admin: 04/07/18 21:50 Dose: 10 mg Calcium Carbonate (Tums*) 500 mg PO Q4H PRN PRN Reason: DYSPEPSIA Last Admin: 04/08/18 12:38 Dose: 500 mg Chlorhexidine Gluconate (Peridex Mouth Wash 0.12%*) 15 ml SWISH SPIT DAILY [facility] Last Admin: 04/08/18 10:05 Dose: 15 ml Dabigatran (Pradaxa Cap(Nf)) 150 mg PO BID [facility] Last Admin: 04/08/18 10:06 Dose: 150 mg Docusate Sodium (Colace Cap*) 100 mg PO BID [facility] Last Admin: 04/08/18 10:06 Dose: 100 mg Furosemide (Lasix Tab*) 20 mg PO QAM [facility] Last Admin: 04/08/18 10:05 Dose: 20 mg Gabapentin (Neurontin Cap(*)) 100 mg PO QAM [facility] Last Admin: 04/08/18 10:06 Dose: 100 mg Gabapentin (Neurontin Cap(*)) 200 mg PO BEDTIME [facility] Last Admin: 04/07/18 21:50 Dose: 200 mg Hydromorphone HCl (Dilaudid Inj1s*) 0.5 mg IV SLOW PU Q6H PRN PRN Reason: PAIN Last Admin: 04/07/18 20:47 Dose: 0.5 mg Azithromycin 500 mg/ Sodium (Chloride) 250 mls @ 250 mls/hr IVPB Q24H [facility] Ceftriaxone Sodium 1 gm/ (Sodium Chloride) 50 mls @ 200 mls/hr IVPB Q24H [facility] Last Admin: 04/08/18 16:57 Dose: 200 mls/hr Levothyroxine Sodium (Synthroid Tab*) 75 mcg PO DAILY@0600 [facility] Last Admin: 04/08/18 05:10 Dose: 75 mcg Lidocaine (Lidoderm 5% Patch*) 1 patch TRANSDERM DAILY [facility] Lorazepam (Ativan Inj*) 0.5 mg IV PUSH Q4H PRN PRN Reason: ANXIETY Magnesium Hydroxide (Milk Of Magnesia Liq*) 30 ml PO BEDTIME PRN PRN Reason: CONSTIPATION Metoprolol Tartrate (Lopressor Tab*) 50 mg PO BID [facility] Last Admin: 04/08/18 10:06 Dose: 50 mg Ondansetron HCl (Zofran Inj*) 4 mg IV Q4H PRN PRN Reason: NAUSEA/VOMITING Pharmacy Profile Note (Lidocaine Patch Remove*) 1 note N/A 2100 [facility] Polyethylene Glycol/Electrolytes (Miralax*) 17 gm PO QAM PRN PRN Reason: CONSTIPATION Vital Signs - 8 hr 04/08/18 04/08/18 04/08/18 10:56 12:39 15:42 Temperature 98.2 F 98.6 F Pulse Rate 75 63 Respiratory 17 18 22 Rate Blood Pressure 122/51 126/58 (mmHg) O2 Sat by Pulse 97 98 Oximetry 04/08/18 16:14 Temperature Pulse Rate Respiratory 18 Rate Blood Pressure (mmHg) O2 Sat by Pulse Oximetry Oxygen Devices in Use Now: None Result Diagrams: 04/08/18 06:24 04/08/18 06:24 Microbiology and Other Data: Microbiology 04/07/18 13:44 Aerobic Blood Culture - Preliminary Blood Venous No Growth Day 1 Anaerobic Blood Culture - Preliminary No Growth Day 1 04/07/18 13:44 Aerobic Blood Culture - Preliminary Blood Venous No Growth Day 1 Anaerobic Blood Culture - Preliminary No Growth Day 1 Assess/Plan/Problems-Billing Assessment: - Patient Problems (1) Low back pain Current Visit: Yes Status: Acute Code(s): M54.5 - LOW BACK PAIN SNOMED Code(s): 435357408 Comment: -Pt has hx of chronic LBP, however, pt is a poor historian and was admitted for MS change -Will obtain lumbar CT, non-contrast to eval for any bony abnormalities -Placed pt on Tylenol BID and Lidocaine patch as ordered -Continue watchful waiting (2) CAP (community acquired pneumonia) Current Visit: Yes Status: Acute Code(s): J18.9 - PNEUMONIA, UNSPECIFIED ORGANISM SNOMED Code(s): 402598771 Comment: -Continue Rocephin and Azithromycin, abx day #06/07 -Blood Cx (-) x 1day -Will obtain urine Ag. For Legionella and S. pneumoniae (3) Altered mental status Current Visit: No Status: Acute Code(s): R41.82 - ALTERED MENTAL STATUS, UNSPECIFIED SNOMED Code(s): 078955030 Comment: -Likely due to PNA described above -Pt also found to have elevated ETOH level on admission w/c may contribute to above -Unclear baseline, however, pt able to converse logically -Continue Rocephin and Azithromycin (4) Alcohol intoxication Current Visit: Yes Status: Acute Comment: -Continue WAM protocol for now as pt is a poor historian (5) Chronic pain Current Visit: No Status: Chronic Code(s): G89.29 - OTHER CHRONIC PAIN SNOMED Code(s): 08345568 Comment: -Please see above discussion -Continue Gabapentin, [place] and above meds for LBP (6) Atrial fibrillation Current Visit: No Status: Chronic Code(s): I48.91 - UNSPECIFIED ATRIAL FIBRILLATION SNOMED Code(s): 73411093 Comment: -Continue Pradaxa (7) Hypothyroidism Current Visit: No Status: Chronic Code(s): E03.9 - HYPOTHYROIDISM, UNSPECIFIED SNOMED Code(s): 97015165 Comment: -Continue Levothyroxine -Will check TSH in AM (8) DVT prophylaxis Current Visit: No Status: Acute Code(s): NVI8918 - SNOMED Code(s): 588482680 Comment: -On Pradaxa Status and Disposition: -For PT eval -Possible D/C in 1-2 days
[2018-04-08] MEDS: Lidocaine PATCH 5%* 1 PATCH TRANSDERM SCH (18:46)
[2018-04-08] MEDS: Azithromycin IV(*) 500 MG in NS 0.9% 250 ML* 250 ML IVPB SCH (20:54)
[2018-04-08] MEDS: Atorvastatin* 10 MG TAB PO SCH (21:10)
[2018-04-08] MEDS: Acetaminophen TAB* 325 MG PO SCH (21:12)
[2018-04-08] MEDS: Lidocaine Patch REMOVE* 1 NOTE MISC SCH (21:39)
[2018-04-09 05:59] LABS: ABS Basophils 0.1 10^3/ul (0-0.2); ABS Eosinophils 0.2 10^3/ul (0-0.6); ABS Lymphocytes 1.7 10^3/ul (1.0-4.8); ABS Monocytes 0.4 10^3/ul (0-0.8); ABS Neutrophils 2.3 10^3/ul (1.5-7.7); ABS Nucleated RBC 0 10^3/ul; Eosinophil % 4.7 %; Hematocrit 33 % (35-47); Mean Corpuscular HGB Conc 33 g/dl (31-36); Mean Corpuscular Hemoglobin 31 pg (27-31); Mean Corpuscular Volume 93 fL (80-97); Mean Platelet Volume 8.2 fL (7.4-10.4); Nucleated Red Blood Cells % 0; Platelet Count 162 10^3/ul (150-450); Red Blood Count 3.56 10^6/ul (4.00-5.40); Red Cell Distribution Width 15 % (10.5-15); White Blood Count 4.6 10^3/ul (3.5-10.8)
[2018-04-09] MEDS: Levothyroxine TAB* 75 MCG TAB PO SCH (06:15)
[2018-04-09 06:19] LABS: EGFR Non-African American 91.2 (>60)
[2018-04-09] MEDS: Hydrocodone/Acetamin 10/325 1 TAB PO PRN ×3 (08:48→20:04)
[2018-04-09] MEDS ORDERED: Potassium Phosphate IV* 15 MMOLE in NS 0.9% 250 ML* 250 ML IVPB ONE (08:53)
[2018-04-09] MEDS ORDERED: Magnesium Sulf 4 GM/100 ML IV* 4,000 MG/100 ML BAG IVPB ONE (08:53)
[2018-04-09] MEDS: Chlorhexidine MOUTHWASH 0.12%* 15 ML UDC SWISH SPIT SCH (09:38)
[2018-04-09] MEDS: Acetaminophen TAB* 325 MG PO SCH ×2 (09:39→20:10)
[2018-04-09] MEDS: Gabapentin CAP(*) 100 MG PO SCH ×2 (09:42→20:07)
[2018-04-09] MEDS: Furosemide TAB* 20 MG PO SCH (09:42)
[2018-04-09] MEDS: Metoprolol Tartrate TAB* 50 mg PO SCH ×2 (09:42→20:07)
[2018-04-09] MEDS: CMCS: Dabigatran CAP(NF) 150 MG CAP PO SCH ×2 (09:42→20:06)
[2018-04-09] MEDS: Docusate CAP* 100 MG PO SCH ×2 (09:42→20:09)
[2018-04-09] MEDS: Allopurinol TAB* 100 MG PO SCH (09:42)
[2018-04-09] MEDS: Lidocaine PATCH 5%* 1 PATCH TRANSDERM SCH (09:56)
[2018-04-09] MEDS: cefTRIAXone(*) 1 GM in NS 0.9% 50 ML* 50 ML IVPB SCH (17:25)
--- NOTE | 2018-04-09 18:05 | PN ---
Subjective Date of Service: 04/09/18 Interval History: Pt seen and examined. Meds and labs reviewed. CC: Right hip and inguinal pain ROS: Denied WERNER/dizziness, F/C, N/V, CP, SOB, increased cough, sputum production , abd pain, diarrhea, constipation, dysuria, myalgias, arthralgias, throat pain , and new skin lesions. The rest of the 14 point ROS are unremarkable. PHYSICAL EXAM: GEN APPEARANCE: Awake, not in acute distress HEENT: NC/AT, PERRLA, moist oral mucosa, (-) throat erythema NECK: Soft, supple, (-) cervical LAD, (-)JVD HEART: S1S2 WNL, RRR, No MRG CHEST: CTA, BL, GAE, No W/R/R ABD: Soft, ND/NT, NABS 4x Q EXT: No C/C/E SKIN: Warm to touch, no tenderness nor signs of inflammation of right hip PSYCH: No active psychosis, hallucinations, depression, SI/HI Objective Active Medications: Acetaminophen (Tylenol Tab*) 1,000 mg PO BID [facility] Last Admin: 04/09/18 09:39 Dose: 1,000 mg Hydrocodone Bitart/Acetaminophen ([place] 10/325 (Nf)) 0.5 tab PO Q6H PRN PRN Reason: PAIN - MODERATE TO SEVERE Last Admin: 04/09/18 14:51 Dose: 0.5 tab Albuterol/Ipratropium (Duoneb (Albuterol 2.5 Mg/Ipratropium 0.5 Mg)) 1 neb INH [id number] AWAKE PRN PRN Reason: sob/wheexing Allopurinol (Zyloprim Tab*) 100 mg PO QAM [facility] Last Admin: 04/09/18 09:42 Dose: 100 mg Atorvastatin Calcium (Lipitor*) 10 mg PO BEDTIME [facility] Last Admin: 04/08/18 21:10 Dose: 10 mg Calcium Carbonate (Tums*) 500 mg PO Q4H PRN PRN Reason: DYSPEPSIA Last Admin: 04/08/18 12:38 Dose: 500 mg Chlorhexidine Gluconate (Peridex Mouth Wash 0.12%*) 15 ml SWISH SPIT DAILY [facility] Last Admin: 04/09/18 09:38 Dose: 15 ml Dabigatran (Pradaxa Cap(Nf)) 150 mg PO BID [facility] Last Admin: 04/09/18 09:42 Dose: 150 mg Docusate Sodium (Colace Cap*) 100 mg PO BID [facility] Last Admin: 04/09/18 09:42 Dose: 100 mg Furosemide (Lasix Tab*) 20 mg PO QAM [facility] Last Admin: 04/09/18 09:42 Dose: 20 mg Gabapentin (Neurontin Cap(*)) 200 mg PO TID [facility] Hydromorphone HCl (Dilaudid Inj1s*) 0.5 mg IV SLOW PU Q6H PRN PRN Reason: PAIN Last Admin: 04/07/18 20:47 Dose: 0.5 mg Azithromycin 500 mg/ Sodium (Chloride) 250 mls @ 250 mls/hr IVPB Q24H [facility] Last Admin: 04/08/18 20:54 Dose: 250 mls/hr Ceftriaxone Sodium 1 gm/ (Sodium Chloride) 50 mls @ 200 mls/hr IVPB Q24H [facility] Last Admin: 04/09/18 17:25 Dose: 200 mls/hr Levothyroxine Sodium (Synthroid Tab*) 75 mcg PO DAILY@0600 [facility] Last Admin: 04/09/18 06:15 Dose: 75 mcg Lidocaine (Lidoderm 5% Patch*) 1 patch TRANSDERM DAILY [facility] Last Admin: 04/09/18 09:56 Dose: Not Given Lorazepam (Ativan Inj*) 0.5 mg IV PUSH Q4H PRN PRN Reason: ANXIETY Magnesium Hydroxide (Milk Of Magnesia Liq*) 30 ml PO BEDTIME PRN PRN Reason: CONSTIPATION Metoprolol Tartrate (Lopressor Tab*) 50 mg PO BID [facility] Last Admin: 04/09/18 09:42 Dose: 50 mg Ondansetron HCl (Zofran Inj*) 4 mg IV Q4H PRN PRN Reason: NAUSEA/VOMITING Pharmacy Profile Note (Lidocaine Patch Remove*) 1 note N/A 2100 [facility] Last Admin: 04/08/18 21:39 Dose: 1 note Polyethylene Glycol/Electrolytes (Miralax*) 17 gm PO QAM PRN PRN Reason: CONSTIPATION Vital Signs - 8 hr 04/09/18 04/09/18 04/09/18 11:39 12:28 14:51 Temperature 98.1 F Pulse Rate 59 Respiratory 16 16 20 Rate Blood Pressure 147/61 (mmHg) O2 Sat by Pulse 100 Oximetry Oxygen Devices in Use Now: None Result Diagrams: 04/09/18 05:52 04/09/18 05:52 Microbiology and Other Data: Microbiology 04/07/18 13:44 Aerobic Blood Culture - Preliminary Blood Venous No Growth Day 1 Anaerobic Blood Culture - Preliminary No Growth Day 1 04/07/18 13:44 Aerobic Blood Culture - Preliminary Blood Venous No Growth Day 1 Anaerobic Blood Culture - Preliminary No Growth Day 1 Assess/Plan/Problems-Billing Assessment: - Patient Problems (1) Low back pain Current Visit: Yes Status: Acute Code(s): M54.5 - LOW BACK PAIN SNOMED Code(s): 059093782 Comment: #w/right hip pain -Pt has hx of chronic LBP, however, pt is a poor historian and was admitted for MS change -Lumbar CT shows spondylopathy while right hip x ray shows osteoarthritis -ContinueTylenol BID and Lidocaine patch as ordered -Increase Gabapenting -Continue watchful waiting (2) CAP (community acquired pneumonia) Current Visit: Yes Status: Acute Code(s): J18.9 - PNEUMONIA, UNSPECIFIED ORGANISM SNOMED Code(s): 418050999 Comment: -Continue Rocephin and Azithromycin, abx day #310 -Blood Cx (-) x 2 days -(-) urine Ag. For Legionella and S. pneumoniae (3) Altered mental status Current Visit: No Status: Acute Code(s): R41.82 - ALTERED MENTAL STATUS, UNSPECIFIED SNOMED Code(s): 204574179 Comment: -Likely due to PNA described above -Pt also found to have elevated ETOH level on admission w/c may contribute to above -Unclear baseline, however, pt able to converse logically -Continue Rocephin and Azithromycin (4) Alcohol intoxication Current Visit: Yes Status: Acute Comment: -Continue WAM protocol for now as pt is a poor historian (5) Chronic pain Current Visit: No Status: Chronic Code(s): G89.29 - OTHER CHRONIC PAIN SNOMED Code(s): 96281622 Comment: -Please see above discussion -Continue Gabapentin, [place] and above meds for LBP (6) Atrial fibrillation Current Visit: No Status: Chronic Code(s): I48.91 - UNSPECIFIED ATRIAL FIBRILLATION SNOMED Code(s): 78881263 Comment: -Continue Pradaxa (7) Hypothyroidism Current Visit: No Status: Chronic Code(s): E03.9 - HYPOTHYROIDISM, UNSPECIFIED SNOMED Code(s): 19974983 Comment: -Continue Levothyroxine -TSH WNL (8) DVT prophylaxis Current Visit: No Status: Acute Code(s): XTA2097 - SNOMED Code(s): 040902337 Comment: -On Pradaxa Status and Disposition: -Appreciate PT evalno needs identified at this time -For possible D/C in AM
[2018-04-09] MEDS: Atorvastatin* 10 MG TAB PO SCH (20:08)
[2018-04-09] MEDS: Azithromycin IV(*) 500 MG in NS 0.9% 250 ML* 250 ML IVPB SCH (20:11)
[2018-04-09] MEDS: Lidocaine Patch REMOVE* 1 NOTE MISC SCH (20:11)
[2018-04-10] MEDS: Hydrocodone/Acetamin 10/325 1 TAB PO PRN ×2 (05:02→12:23)
[2018-04-10] MEDS: Levothyroxine TAB* 75 MCG TAB PO SCH (05:04)
[2018-04-10 06:51] LABS: ABS Basophils 0 10^3/ul (0-0.2); ABS Eosinophils 0.2 10^3/ul (0-0.6); ABS Lymphocytes 1.2 10^3/ul (1.0-4.8); ABS Monocytes 0.4 10^3/ul (0-0.8); ABS Neutrophils 2.9 10^3/ul (1.5-7.7); ABS Nucleated RBC 0 10^3/ul; Eosinophil % 3.9 %; Hematocrit 33 % (35-47); Mean Corpuscular HGB Conc 34 g/dl (31-36); Mean Corpuscular Hemoglobin 31 pg (27-31); Mean Corpuscular Volume 92 fL (80-97); Mean Platelet Volume 8.4 fL (7.4-10.4); Nucleated Red Blood Cells % 0; Platelet Count 155 10^3/ul (150-450); Red Blood Count 3.57 10^6/ul (4.00-5.40); Red Cell Distribution Width 15 % (10.5-15); White Blood Count 4.7 10^3/ul (3.5-10.8)
[2018-04-10 07:10] LABS: EGFR Non-African American 100.3 (>60)
[2018-04-10] MEDS: Lidocaine PATCH 5%* 1 PATCH TRANSDERM SCH (09:11)
[2018-04-10] MEDS: Acetaminophen TAB* 325 MG PO SCH (09:15)
[2018-04-10] MEDS: CMCS: Dabigatran CAP(NF) 150 MG CAP PO SCH (09:18)
[2018-04-10] MEDS: Metoprolol Tartrate TAB* 50 mg PO SCH (09:18)
[2018-04-10] MEDS: Gabapentin CAP(*) 100 MG PO SCH (09:18)
[2018-04-10] MEDS: Docusate CAP* 100 MG PO SCH (09:18)
[2018-04-10] MEDS: Allopurinol TAB* 100 MG PO SCH (09:18)
[2018-04-10] MEDS: Furosemide TAB* 20 MG PO SCH (09:18)
[2018-04-10] MEDS: Chlorhexidine MOUTHWASH 0.12%* 15 ML UDC SWISH SPIT SCH (09:20)
[2018-04-10 12:00] VITALS: BP 172/64
[2018-04-10] MEDS ORDERED: Gabapentin CAP(*) 300 MG PO SCH (14:00)
--- NOTE | 2018-04-11 10:48 | DS ---
CC: Dr. Portillo; Dr. Lester Tavares; Dr. Aurelia Koroma * DISCHARGE SUMMARY: DATE OF ADMISSION: 04/07/18 DATE OF DISCHARGE: 04/10/18 DISCHARGE DIAGNOSES: 1. 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 2. Mental status change secondary to community-acquired pneumonia. 3. Community-acquired pneumonia. 4. Osteoarthritis and osteopenia of the right hip likely causing right inguinal area pain. DISCHARGE MEDICATIONS: 1. Tylenol 1000 mg p.o. b.i.d. 2. Allopurinol 100 mg p.o. q.a.m. 3. Atorvastatin 10 mg p.o. q.h.s. 4. Chlorhexidine 15 mL swish and spit daily. 5. Dabigatran 150 mg p.o. b.i.d. 6. Colace 100 mg p.o. b.i.d. 7. Lasix 20 mg p.o. q.a.m. 8. Gabapentin 300 mg p.o. t.i.d. 9. Mutual 10/325 of 0.5 tab p.o. q.6 h. p.r.n. 10. Levothyroxine 75 mcg p.o. q.a.m. 11. Lidocaine patch 1 patch transdermal daily. 12. Magnesium hydroxide 30 mL p.o. q.h.s. 13. Metoprolol tartrate 50 mg p.o. b.i.d. 14. Azithromycin 250 mg p.o. daily for 2 more days. 15. Buspirone 15 mg p.o. b.i.d. 16. Cefpodoxime 200 mg p.o. b.i.d. for 7 more days, to complete the 10-day treatment therapy. 17. Ergocalciferol 50,000 units p.o. q. monthly. 18. Floranex tab 2 tabs p.o. q. daily for 10 days. 19. Lidocaine patch 5% 1 patch transdermal to lower back daily. 20. Lorazepam 0.25 mg p.o. b.i.d. 21. Polyethylene glycol 17 g p.o. q.a.m. p.r.n. HISTORY OF PRESENT ILLNESS/HOSPITAL COURSE: The patient is a 77-year-old lady with history of AFib, chronic back pain, and knee pain, hypertension, and GERD, who presented to the ED after her home-health nurse found her to be more confused than usual and was noted to not recognize her home -health nurse that she has been seeing for 2 years and was telling her to get out of the house and that she was seeing the devil. The home-health nurse reported that she was in her usual state of health prior to this and has not heard about any falls nor seen her cough nor have any respiratory symptoms. She presented to the ED and was diagnosed with pneumonia and has been treated with Rocephin and vancomycin, and her mental status subsequently improved. She has been complaining of low back pain and right hip pain as well as pain in the inguinal area that was addressed by adjusting her pain medications and adjuvant therapy. Her low back pain has been much better controlled but complains of today of more right hip pain. On imaging of the right hip area, it suggests osteopenia and osteoarthritis of the hip. I have also discussed the lumbar CT scan that showed moderate multilevel lumbar spondylopathy causing canal stenosis at L1-L2 through L4-L5 with Ms. Marley Eugene of Neurosurgery and the patient had been advised to call their office for her to make an appointment. Ms. Eugene is aware of this referral. The patient was advised to follow up and/or call her PCP within 3 days post DC. She was informed that I have adjusted her pain medications prior to her discharge and that her inguinal pain is likely secondary to osteoarthritis and osteopenia seen on her right hip x-ray and she is aware that I have also discussed her lumbar CT spine results with neurosurgery team and she has been asked to follow up with the scans and call their office to make an appointment. A referral has already been made. She was advised that if her symptoms resume or develop new ones or feel unwell for any reason, to call her PCP first. If her PCP cannot entertain her due to scheduling issues alone, she has been advised to call [facility] if the issue is considered nonemergent. She was advised to call my office regarding any questions, concerns, or further clarifications regarding her discharge plans and/or prescriptions and to take her medications as prescribed. REVIEW OF SYSTEMS: The patient denied any recent headaches, dizziness, fevers, chills, nausea, vomiting, chest pain, shortness of breath, increased cough and/ or sputum production, abdominal pain, diarrhea, constipation, pain and/or increased frequency on urination, throat pain, or new skin lesions. The patient as mentioned complains of some right inguinal pain as well as intermittent hip pain of the area. Please see discussion above. PHYSICAL EXAMINATION: Shows the most recent vital signs of records with blood pressure of 172/64, 154/56 from 152/61; 98% saturation on room air; respiratory rate of 17; 98.3 degrees Fahrenheit; heart rate of 57 from 75 and 49. General Appearance: The patient is awake, not in acute distress. HEENT: Normocephalic , atraumatic. PERRLA. Extraocular muscles intact. Negative for icterus. Moist oral mucosa. Negative throat erythema. Neck is soft, supple with no cervical lymphadenopathy. No JVD. Heart: S1, S2 within normal limits. Regular rate and rhythm. No murmurs, rubs, or gallops. Chest: Clear to auscultation bilaterally. Good air entry. No wheezes, rales, or rhonchi. Abdomen is soft, nondistended, nontender. Normoactive bowel sounds x4 quadrants. Extremities: No cyanosis, clubbing or edema. Psychiatric: No active psychosis, depression, suicidal or homicidal ideation. Skin is warm to touch. TIME SPENT: The total time spent evaluating the patient, reviewing pertinent data, and appropriate documentation is 65 minutes. [id number] #: [id number] MTDD
== END 2018-04-10 17:00 | disposition home or self-care (01) | DRG 195 ==
LOC: ED 12:49 → MED 19:24
PROVIDERS: ADMIT Internal Medicine; ATTEND Student in an Organized Health Care Education/Training Program
DX: J18.9 Pneumonia, unspecified organism (principal); I48.91 Unspecified atrial fibrillation; M48.061 Spinal stenosis, lumbar region without neurogenic claudication; M16.11 Unilateral primary osteoarthritis, right hip; M85.861 Other specified disorders of bone density and structure, right lower leg; M54.9 Dorsalgia, unspecified; M25.569 Pain in unspecified knee; E87.6 Hypokalemia; I10 Essential (primary) hypertension; K21.9 Gastro-esophageal reflux disease without esophagitis; F41.9 Anxiety disorder, unspecified; E03.9 Hypothyroidism, unspecified; F10.129 Alcohol abuse with intoxication, unspecified; Y90.2 Blood alcohol level of 40-59 mg/100 ml; Z79.899 Other long term (current) drug therapy; Z88.5 Allergy status to narcotic agent; Z88.8 Allergy status to other drugs, medicaments and biological substances
CPT/HCPCS: 36415; 70450; 71045; 72125; 72131; 74177; 80048; 80053; 80307; 80320; 81003; 81015; 82140; 83605; 83735; 84100; 84443; 84484; 85025; 85610; 85730; 87040; 87086; 87899; 99284; A9270-GY; G0480; G8978-GP-CI; G8979-GP-CI; G8980-GP-CI; J0456; J0696; J1170; J2060; J2405; J3475; J3480; Q9967